=== PATIENT | female | born 1985 | race Hispanic/Latino ===

== ENCOUNTER 2016-12-20 16:32 | Inpatient (IN) | payer BC ==
[2016-12-20] MEDS ORDERED: LACTATED RINGERS 1,000 ML ONE (19:00)
[2016-12-20] MEDS ORDERED: REGLAN IV ONE (19:08)
[2016-12-20] MEDS ORDERED: PEPCID IV ONE (19:08)
[2016-12-20] MEDS ORDERED: BICITRA PO ONE (19:08)
--- NOTE | 2016-12-20 19:16 | History and Physical Report ---
History of Present Illness Date of examination: 12/20/16 Date of admission: 12/20/2016 Chief complaint: My baby is breech History of present illness: Patient is a 31 year old who presented to the office at 38.4 weeks and was found to have an abnormal presentation of exam. Ultrasound confirmed breech presentation. Patient has had an uncomplicated course starting care at 12 weeks. Will admit for primary for breech. Past History Past Medical History: no pertinent history Past Surgical History: no surgical history Family/Genetic History: none Social history: - Obstetrical History Expected Date of Delivery: 12/30/16 Actual Gestation: 38 Week(s) 4 Day(s) : 1 Medications and Allergies Allergies Allergy/AdvReac Type Severity Reaction Status Date / Time No Known Allergies Allergy Unverified 10/11/16 16:45 Review of Systems All systems: negative Constitutional: weight gain Breasts: deferred Genitourinary: contractions - Vital Signs Vital signs: Vital Signs Pulse Pulse Ox 105 H 96 12/20/16 16:52 12/20/16 16:52 Temp Pulse Resp BP Pulse Ox 98.1 F 91 H 14 141/84 97 12/20/16 17:10 12/20/16 17:31 12/20/16 17:10 12/20/16 17:31 12/20/16 17:01 - Physical Exam Breasts: Cardiovascular: Regular rate, Normal S1, Normal S2 Lungs: Positive: Clear to auscultation, Normal air movement Abdomen: Positive: normal appearance, soft, normal bowel sounds. Negative: distention, tenderness Vulva: both: normal Vagina: Positive: normal moisture. Negative: discharge Cervix: Negative: lesion, discharge Uterus: Positive: normal size, normal contour Adnexa: both: normal Anus/Rectum: Positive: normal perianal skin, heme negative. Negative: rectal mass, hemorrhoids Extremities: Deep Tendon Reflex Grade: Normal +2 - Obstetrical FHR: auscultation normal Cervical Dilatation: 1 Cervical Effacement Percentage: 60 Uterine Contraction Pattern: Irregular Uterine Contraction Intensity: Mild Results All other labs normal. Assessment and Plan Patient is a 31 year old female who presents with newly diagnosed breech baby. Will proceed with this evening with the patient's permission. Consents signed and placed on chart.
[2016-12-20 19:43] LABS: Basophils % (Auto) 0.4 % (0.0-1.8); Eosinophils % (Auto) 0.4 % (0.0-4.3); Hematocrit 38.1 % (30.3-42.9); Hemoglobin 13.2 gm/dl (10.1-14.3); Mean Corpuscular HGB Conc 35 % (30-34); Mean Corpuscular Hemoglobin 32 pg (28-32); Mean Corpuscular Volume 93 fl (79-97); Platelet Count 176 K/mm3 (140-440); Red Blood Count 4.11 M/mm3 (3.65-5.03); Red Cell Distribution Width 13.5 % (13.2-15.2); White Blood Count 16.9 K/mm3 (4.5-11.0)
[2016-12-20] MEDS ORDERED: PITOCin/NS 20 UNIT/1000ML DRIP 20 UNITS/1,000 ML BAG IV SCH ×2 (20:00→23:51)
[2016-12-20] MEDS ORDERED: ANCEF/STERILE WATER 2 GM/20 ML 2 GM/20 ML SYRINGE IV NR (20:00)
[2016-12-20] MEDS ORDERED: LACTATED RINGERS 1,000 ML IV SCH (20:00)
--- NOTE | 2016-12-20 20:34 | Anesthesia Consultation ---
Anesthesia Consult and Med Hx Date of service: 12/20/16 - Airway Anesthetic Teeth Evaluation: Good ROM Head & Neck: Adequate Mental/Hyoid Distance: Adequate Mallampati Class: Class II Intubation Access Assessment: Probably Good - Pulmonary Exam CTA: Yes - Cardiac Exam Cardiac Exam: RRR - Pre-Operative Health Status ASA Pre-Surgery Classification: ASA2 Proposed Anesthetic Plan: Epidural, Spinal - Pulmonary Hx Asthma: No COPD: No Hx Pneumonia: No - Cardiovascular System Hx Hypertension: No - Central Nervous System Hx Seizures: No Hx Psychiatric Problems: No - Endocrine Hx Renal Disease: No Hx End Stage Renal Disease: No Hx Hypothyroidism: No Hx Hyperthyroidism: No - Hematic Hx Anemia: No Hx Sickle Cell Disease: No - Other Systems Hx Alcohol Use: No
[2016-12-20] MEDS ORDERED: DILAUDID IV PRN (20:35)
[2016-12-20] MEDS ORDERED: BENADRYL IV PRN (20:35)
[2016-12-20] MEDS ORDERED: NARCAN 0.4 MG/1 ML IV PRN ×2 (20:35→23:51)
[2016-12-20] MEDS ORDERED: ZOFRAN IV PRN ×2 (20:35→23:51)
--- NOTE | 2016-12-20 20:35 | Anesthesia Day of Surgery ---
Anesthesia Day of Surgery - Day of Surgery Patient Examined: Yes Patient H&P Reviewed: Yes Patient is NPO: Yes (had food @ 11AM)
[2016-12-20] MEDS ORDERED: TORADOL IV PRN (20:36)
[2016-12-20] MEDS ORDERED: MORPHINE ONE (20:38)
[2016-12-20] MEDS ORDERED: ADRENALIN ONE (20:54)
[2016-12-20] MEDS ORDERED: ePHEDrine SULFATE ONE (20:55)
[2016-12-20] MEDS ORDERED: NACL 0.9% IR ONE (21:00)
[2016-12-20] MEDS ORDERED: SODIUM CHLORIDE FLUSH SYRINGE 10 ML IV SCH (21:00)
[2016-12-20] MEDS ORDERED: WATER FOR IRRIG STERILE IR ONE (21:00)
[2016-12-20] MEDS ORDERED: ZOFRAN ONE (21:44)
--- NOTE | 2016-12-20 22:46 | Procedure Note ---
OB Delivery Note - Delivery Date of Delivery: 12/20/16 Surgeon: YELENA SUAREZ Estimated blood loss: other (800cc) - Section Preop diagnosis: breech Postop diagnosis: same section procedure: primary low transverse Disposition: PACU Complications: none Narrative: see op report - A at 1 minute: 8 at 5 minutes: 9 Gender: Female (5'11 (2581 grams))
[2016-12-20] MEDS ORDERED: LANSINOH TP PRN (23:51)
[2016-12-20] MEDS ORDERED: MYLICON PO PRN (23:51)
[2016-12-20] MEDS ORDERED: TUCKS PAD TP PRN (23:51)
[2016-12-20] MEDS ORDERED: D5LR 1,000 ML IV SCH (23:51)
[2016-12-20] MEDS ORDERED: TYLENOL PO PRN (23:51)
[2016-12-20] MEDS ORDERED: SODIUM CHLORIDE FLUSH SYRINGE 10 ML IV NR (23:51)
[2016-12-20] MEDS ORDERED: MORPHINE IV PRN (23:51)
[2016-12-21] MEDS: PERCOCET 5/325 PO PRN ×5 (03:38→23:09)
--- NOTE | 2016-12-21 09:38 | Ultrasound Report ---
ULTRASOUND OB LIMITED History: well being, evaluate position Technique: Transabdominal ultrasound with Doppler interrogation. Gestation: Single Position: Breech Heart Rate: 153 BPM
[2016-12-21] MEDS ORDERED: PRENATAL VITAMIN PO SCH (10:00)
[2016-12-21 11:08] LABS: Hematocrit 32.9 % (30.3-42.9); Hemoglobin 11.2 gm/dl (10.1-14.3)
--- NOTE | 2016-12-21 15:36 | Progress Note ---
Assessment and Plan POD 1 s/p primary LTCS for breech. Doing well. Continue routine care. Plan for discharge tomorrow. Subjective - Subjective Date of service: 12/21/16 Interval history: Patient is a 31 year old who presented to the office at 38.4 weeks and was found to have an abnormal presentation of exam. Ultrasound confirmed breech presentation. Patient has had an uncomplicated course starting care at 12 weeks. Will admit for primary for breech. Patient reports: appetite normal, voiding normally, pain well controlled, flatus , ambulating normally : doing well Objective - Vital Signs Latest vital signs: Vital Signs Temp Pulse Pulse Resp BP BP Pulse Ox 12/21/16 14:21 20 12/21/16 11:51 97.9 F 87 16 116/71 12/21/16 08:51 20 12/21/16 08:04 98.6 F 93 H 16 130/71 12/20/16 23:05 90 20 130/69 100 12/20/16 22:55 89 20 122/75 100 12/20/16 22:35 98 H 16 126/73 99 12/20/16 22:20 92 H 19 125/60 100 12/20/16 22:15 89 18 120/61 100 12/20/16 22:09 98.0 F 94 H 18 119/70 100 12/20/16 17:31 91 H 141/84 12/20/16 17:10 98.1 F 14 12/20/16 17:01 123 H 97 12/20/16 17:00 98 H 132/79 96 12/20/16 16:59 100 H 142/101 96 12/20/16 16:58 110 H 96 12/20/16 16:52 105 H 96 Intake and Output 12/21/16 12/21/16 12/21/16 06:59 14:59 22:59 Intake Total 906 480 Output Total 50 3000 Balance 856 -2520 Intake: IV 906 D5lr 1,000 ml @ 125 mls/ 375 hr IV DIRECT DIMA Rx#: [id number] PITOCin/NS 20 UNIT/1000ML 531 DRIP 20 units In 1,000 ml @ As Directed IV TITR DIMA Rx#:[id number] Oral 480 Output: Urine 50 3000 Indwelling Catheter 3000 Other: Total, Intake Amount 480 Total, Output Amount 3000 - Exam Breasts: Present: deferred Cardiovascular: Present: Regular rate, Normal S1, Normal S2 Lungs: Present: Clear to auscultation, Normal air movement Abdomen: Present: normal appearance, soft, normal bowel sounds Uterus: Present: normal, firm Extremities: Present: normal Incision: Present: normal, dry, intact - Labs Labs: Abnormal lab results 12/20/16 Range/Units 19:30 WBC 16.9 H (4.5-11.0) K/mm3 MCHC 35 H (30-34) % [place] # 1.1 H (0.0-0.8) K/mm3 Seg Neutrophils % 72.6 H (40.0-70.0) % Seg Neutrophils # 12.3 H (1.8-7.7) K/mm3
--- NOTE | 2016-12-21 15:40 | Discharge Summary ---
Providers - Providers Date of Admission: 12/20/16 19:30 Date of discharge: 12/21/16 Attending physician: YELENA SUAREZ Primary care physician: YELENA SUAREZ Hospitalization Reason for admission: active labor, other (breech presentation) Delivery: Procedure: primary low transverse Incision: normal, dry, intact Discharge diagnosis: IUP at term delivered baby: female Hospital course: unremarkable Condition at discharge: Good Disposition: DISCHARGED TO HOME OR SELFCARE Plan - Discharge Medications Prescriptions: Docusate Sodium [Colace] 100 mg PO BID PRN #60 capsule PRN Reason: Constipation Ibuprofen [Motrin] 800 mg PO Q8HR PRN #40 tablet PRN Reason: Pain oxyCODONE /ACETAMINOPHEN [Percocet 5/325 mg] 2 tab PO Q4H PRN #60 tablet PRN Reason: Pain, Moderate (4-6) Vit-Fe Fumar-FA [ Vitamin] 1 each PO QDAY #30 tablet - Provider Discharge Summary Activity: routine, no sex for 6 weeks, no heavy lifting 4 weeks, no strenuous exercise Diet: routine Instructions: routine Additional instructions: [] Smoking cessation referral if applicable(refer to patient education folder for contact #) [] Refer to [facility] Booklet Call your doctor immediately for: * Fever > 100.5 * Heavy vaginal bleeding ( >1 pad per hour) * Severe persistent headache * Shortness of breath * Reddened, hot, painful area to leg or breast * Drainage or odor from incision. * Keep incision clean and dry at all times and follow doctor's instructions regarding bathing/showering - Follow up plan Follow up: YELENA SUAREZ MD [Primary Care Provider] - 14 Days
[2016-12-21] MEDS ORDERED: BOOSTRIX IM ONE (22:42)
[2016-12-22] MEDS: PERCOCET 5/325 PO PRN (06:09)
[2016-12-22 08:59] VITALS: BP 113/69
== END 2016-12-22 10:15 | disposition home or self-care (01) | DRG 766 ==
LOC: TRG 16:32 → APU 19:30 → OB 23:21
PROVIDERS: ADMIT Obstetrics & Gynecology; ATTEND Obstetrics & Gynecology
PROC: 10D00Z1 Extraction of Products of Conception, Low, Open Approach (ICD-10-PCS; principal; 2016-12-20)
PROC: 30233S1 Transfusion of Nonautologous Globulin into Peripheral Vein, Percutaneous Approach (ICD-10-PCS; 2016-12-21)
DX: O32.1XX0 Maternal care for breech presentation, not applicable or unspecified (principal); Z3A.38 38 weeks gestation of pregnancy; Z37.0 Single live birth
CPT/HCPCS: 36415; 76815; 85014; 85018; 85025; 85460; 85461; 86850; 86900; 86901; 90471; 90715; J0171; J0690; J2270; J2405; J2590; J2765; J2790; J7120; J7121

== ENCOUNTER 2020-07-13 13:20 | Outpatient (CLI) | payer BC ==
[2020-07-13 15:16] VITALS: BP 123/76
== END 2020-07-13 15:31 | disposition home or self-care (01) ==
LOC: LAB 13:20 → APU 15:06 → LAB 15:31
PROVIDERS: ATTEND Obstetrics & Gynecology
DX: O26.893 Other specified pregnancy related conditions, third trimester (principal); Z67.41 Type O blood, Rh negative; Z3A.32 32 weeks gestation of pregnancy
CPT/HCPCS: 86850; 86900; 86901; 96372; J2790